=== PATIENT | female | born 1975 | race Hispanic/Latino ===

== ENCOUNTER 2023-01-04 11:19 | Emergency (ER) | payer SELFPAY ==
[2023-01-04 12:13] LABS: Absolute Lymphocytes (CBC) 3.2 K/uL (0.7-4.9); Hematocrit 44.3 % (36.0-45.0); Lymphocytes % 31.2 % (15.3-44.8); MCV 83.9 fL (80-100); MPV 7.6 fL (7.6-11.3); RBC Red Blood Cell Count 5.27 M/uL (3.86-4.86)
[2023-01-04] MEDS ORDERED: MORPHINE 2 MG/ML SYR ONE (12:15)
[2023-01-04] MEDS ORDERED: ONDANSETRON 4 MG/2 ML VIAL ONE (12:15)
[2023-01-04 12:32] LABS: Potassium 3.4 mEq/L (3.5-5.1)
--- NOTE | 2023-01-04 12:40 | RAD REPORT ---
EXAM DESCRIPTION: RAD - Chest Single View - 01/04/2023 12:33 pm CLINICAL HISTORY: CHEST PAIN COMPARISON: <Comparisons> FINDINGS: Lines: None. Lungs: No evidence of edema or pneumonia. Pleural: No significant pleural effusions or pneumothorax. Cardiac: Enlarged cardiopericardial silhouette which may be related to portable technique. Mediastinum: Within normal limits. Bones: No acute fractures. Plate and screw fixation of the right clavicle. Other: None IMPRESSION: No acute cardiopulmonary disease.
--- NOTE | 2023-01-04 12:46 | RAD REPORT ---
EXAM DESCRIPTION: CT - Head Brain Wo Cont - 01/04/2023 12:24 pm CLINICAL HISTORY: HEADACHE COMPARISON: No comparisons TECHNIQUE: All CT scans are performed using dose optimization technique as appropriate and may inclu de automated exposure control or mA/KV adjustment according to patient size. FINDINGS: No intracranial hemorrhage, hydrocephalus or extra-axial fluid collection.No areas of brai n edema or evidence of midline shift. Volume loss and encephalomalacia of the left temporal lobe. The paranasal sinuses and mastoids are clear. The calvarium is intact. IMPRESSION: No acute intracranial abnormality. Volume loss and encephalomalacia the left temporal l obe which may be related to remote trauma or other insult.
[2023-01-04] MEDS ORDERED: METOCLOPRAMIDE 10 MG/2mL INJ ONE (13:50)
[2023-01-04] MEDS ORDERED: DIPHENHYDRAMINE 50 MG/ML VIAL ONE (13:50)
[2023-01-04] MEDS ORDERED: NA CHLORIDE 0.9% 500 ML ONE (13:51)
[2023-01-04] MEDS ORDERED: KETOROLAC 30 MG/ML INJ ONE (13:51)
--- NOTE | 2023-01-04 16:21 | ER ---
Nurse's Notes [facility] Name: Sabrina Candelaria Age: 47 yrs Sex: Female : 1975 Arrival Date: 01/04/2023 Time: 11:19 Bed 13 Private MD: Diagnosis: Chest pain, unspecified;Headache Presentation: 01/04 11:39 Chief complaint: Patient states: Headache, chest, neck pain X 1 week. HTN - does not ld1 take daily medication. Coronavirus screen: At this time, the client does not indicate any symptoms associated with coronavirus-19. Ebola Screen: No symptoms or risks identified at this time. Initial Sepsis Screen: Does the patient meet any 2 criteria? No. Patient's initial sepsis screen is negative. Does the patient have a suspected source of infection? No. Patient's initial sepsis screen is negative. Risk Assessment: Do you want to hurt yourself or someone else? Patient reports no desire to harm self or others. Onset of symptoms was January 04, 2023. 11:39 Method Of Arrival: Ambulatory ld1 11:39 Acuity: ELIZABETH 3 ld1 Triage Assessment: 11:40 General: Appears in no apparent distress. comfortable, Behavior is calm, cooperative, ld1 appropriate for age. Pain: Complains of pain in face, back and neck Pain does not radiate. Pain currently is 10 out of 10 on a pain scale. Quality of pain is described as throbbing, Pain began suddenly, 1 week. EENT: No signs and/or symptoms were reported regarding the EENT system. Neuro: Level of Consciousness is awake, alert, obeys commands, Oriented to person, place, time, situation. Cardiovascular: Capillary refill < 3 seconds Patient's skin is warm and dry. Respiratory: Airway is patent Respiratory effort is even, unlabored. GI: Abdomen is round non-distended. : No signs and/or symptoms were reported regarding the genitourinary system. Derm: No signs and/or symptoms reported regarding the dermatologic system. Musculoskeletal: No signs and/or symptoms reported regarding the musculoskeletal system. 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 - Social history:: Smoking status: Patient reports the use of cigarette tobacco products, smokes one-half pack cigarettes per day, Patient/guardian denies using alcohol. Screenin:00 [facility] ED Fall Risk Assessment (Adult) History of falling in the last 3 months, nj1 including since admission No falls in past 3 months (0 pts) Confusion or Disorientation No (0 pts) Intoxicated or Sedated No (0 pts) Impaired Gait No (0 pts) Mobility Assist Device Used No (0 pt) Altered Elimination No (0 pt) Score/Fall Risk Level 0 - 2 = Low Risk Oriented to surroundings, Maintained a safe environment, Hourly rounding (assess needs \T\ fall precautionary measures) done. Abuse screen: Denies threats or abuse. Denies injuries from another. 12:00 Nutritional screening: No deficits noted. Tuberculosis screening: No symptoms or risk nj1 factors identified. Assessment: 12:00 General: Appears in no apparent distress. uncomfortable, Behavior is calm, cooperative, nj1 appropriate for age. Pain: Complains of pain in chest and head Pain currently is 10 out of 10 on a pain scale. Neuro: Level of Consciousness is awake, alert, obeys commands, Oriented to person, place, time, situation. Cardiovascular: Patient's skin is warm and dry. Cardiovascular: Chest pain. Respiratory: Airway is patent Respiratory effort is even, unlabored. 13:00 Reassessment: Patient appears in no apparent distress at this time. Patient and/or nj1 family updated on plan of care and expected duration. Pain level reassessed. Patient is alert, oriented x 3, equal unlabored respirations, skin warm/dry/pink. 13:50 Reassessment: Patient appears in no apparent distress at this time. Patient and/or nj1 family updated on plan of care and expected duration. Pain level reassessed. Patient is alert, oriented x 3, equal unlabored respirations, skin warm/dry/pink. 15:07 Reassessment: Patient appears in no apparent distress at this time. Patient and/or nj1 family updated on plan of care and expected duration. Pain level reassessed. Patient is alert, oriented x 3, equal unlabored respirations, skin warm/dry/pink. Patient denies pain at this time. Patient states feeling better. Patient states symptoms have improved. 16:00 Reassessment: Patient appears in no apparent distress at this time. Patient and/or nj1 family updated on plan of care and expected duration. Pain level reassessed. Patient is alert, oriented x 3, equal unlabored respirations, skin warm/dry/pink. Patient denies pain at this time. Patient states feeling better. Patient states symptoms have improved. Vital Signs: 11:39 BP 154 / 99; Pulse 63; Resp 18; Temp 97.4(O); Pulse Ox 98% on R/A; Weight 85.73 kg; ld1 Height 5 ft. 6 in. ; Pain 10/10; 12:00 BP 178 / 102; Pulse 68; Resp 18; Pulse Ox 99% ; Pain 10/10; nj1 13:00 BP 170 / 108; Pulse 67; Resp 14; Pulse Ox 98% on R/A; Pain 7/10; nj1 13:54 BP 166 / 93; Pulse 64; Resp 16; Pulse Ox 100% on R/A; Pain 7/10; nj1 15:07 BP 158 / 97; Pulse 64; Resp 17; Pulse Ox 95% on R/A; Pain 0/10; nj1 16:00 BP 136 / 75; Pulse 64; Resp 18; Pulse Ox 96% ; Pain 0/10; nj1 11:39 Body Mass Index 30.51 (85.73 kg, 167.64 cm) ld1 11:39 Pain Scale: Adult ld1 12:00 Pain Scale: Adult nj1 13:00 Pain Scale: Adult nj1 13:54 Pain Scale: Adult nj1 15:07 Pain Scale: Adult nj1 16:00 Pain Scale: Adult nj1 ED Course: 11:21 Patient arrived in ED. rg4 11:31 Zaheer Briggs PA is PHCP. jmm 11:31 Omar Ferguson MD is Attending Physician. jmm 11:40 Triage completed. ld1 11:40 Arm band placed on right wrist. EKG completed in triage. Results shown to MD. ld1 11:55 Dai Costa, SHEYLA is Primary Nurse. nj1 12:00 Patient has correct armband on for positive identification. Bed in low position. Call nj1 light in reach. Side rails up X 1. Adult w/ patient. 12:00 Client placed on continuous cardiac and pulse oximetry monitoring. NIBP monitoring nj1 applied. 12:00 Patient maintains SpO2 saturation greater than 95% on room air. nj1 12:05 Inserted saline lock: 20 gauge in right antecubital area, using aseptic technique. nj1 Blood collected. 12:25 CT Head Brain wo Cont In Process Unspecified. EDMS 12:34 XRAY Chest (1 view) In Process Unspecified. EDMS 16:20 Ulices Disla MD is Referral Physician. [place]on[place] 16:45 No provider procedures requiring assistance completed. IV discontinued, intact, nj1 bleeding controlled. Administered Medications: 12:10 Drug: morphine IVP or IV 2 mg Route: IVP; Infused Over: 4 mins; Site: right antecubital;nj1 13:10 Follow up: Response: No adverse reaction; Pain is decreased nj1 12:10 Drug: Ondansetron IVP 4 mg Route: IVP; Site: right antecubital; nj1 13:10 Follow up: Response: No adverse reaction nj1 13:50 Drug: metoCLOPramide IVP 20 mg Route: IVP; Site: right antecubital; nj1 14:50 Follow up: Response: No adverse reaction; Marked relief of symptoms nj1 13:50 Drug: diphenhydrAMINE IVP 12.5 mg Route: IVP; Site: right antecubital; nj1 14:50 Follow up: Response: No adverse reaction; Marked relief of symptoms nj1 13:50 Drug: Ketorolac IVP 30 mg Route: IVP; Site: right antecubital; nj1 14:50 Follow up: Response: No adverse reaction; Marked relief of symptoms nj1 Medication: 16:45 VIS not applicable for this client. nj1 Outcome: 16:20 Discharge ordered by . quyen 16:45 Discharged to home ambulatory, with family. nj1 16:45 Condition: stable 16:45 Discharge instructions given to patient, family, Instructed on discharge instructions, follow up and referral plans. medication usage, Demonstrated understanding of instructions, follow-up care, medications, Prescriptions given X 1. 16:50 Patient left the ED. nj1 Signatures: Dispatcher [employer] EDMS Zaheer Briggs PA PA jmm Garcia, Rubi rg4 Chata Wetzel, RN RN ld1 Dai Costa RN RN nj1 Corrections: (The following items were deleted from the chart) 17:25 17:24 Patient left the ED. nj1 nj1
--- NOTE | 2023-01-04 16:21 | EDPHYS ---
Physician Documentation [facility] Name: Sabrina Candelaria Age: 47 yrs Sex: Female : 1975 Arrival Date: 01/04/2023 Time: 11:19 Bed 13 Private MD: ED Physician Omar Ferguson HPI: 01/04 11:42 This 47 yrs old Female presents to ER via Ambulatory with complaints of Chest jmm Pressure, Back Pain, Headache, High Blood Pressure, Nausea. 11:42 The patient or guardian reports chest pain that is located primarily in the substernal jmm area. Onset: gradually, 1 week(s) ago. The pain does not radiate. Associated signs and symptoms: Pertinent positives: headache. The chest pain is described as aching. Is a 47-year-old female with history of hypertension presents the ED with complaints of headache and chest pain beginning approximately a week ago. Pain increased today. Denies history of coronary artery disease but states that she does smoke regularly.. 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 - Social history:: Smoking status: Patient reports the use of cigarette tobacco products, smokes one-half pack cigarettes per day, Patient/guardian denies using alcohol. ROS: 11:42 Constitutional: Negative for fever, chills, and weight loss. jmm 11:42 Cardiovascular: Positive for chest pain. 11:42 Neuro: Positive for headache. 11:42 All other systems are negative. Exam: 11:42 Head/Face: atraumatic. Eyes: EOMI, no conjunctival erythema appreciated ENT: Moist jmm Mucus Membranes Neck: Trachea midline, Supple Chest/axilla: Normal chest wall appearance and motion. Cardiovascular: Regular rate and rhythm. No edema appreciated Respiratory: Normal respirations, no respiratory distress appreciated Abdomen/GI: Non distended Back: Normal ROM Skin: General appearance color normal MS/ Extremity: Moves all extremities, no obvious deformities appreciated, no edema noted to the lower extremities Neuro: Awake and alert Psych: Behavior is normal, Mood is normal, Patient is cooperative and pleasant 11:42 Constitutional: The patient appears alert, awake, uncomfortable. Vital Signs: 11:39 BP 154 / 99; Pulse 63; Resp 18; Temp 97.4(O); Pulse Ox 98% on R/A; Weight 85.73 kg; ld1 Height 5 ft. 6 in. ; Pain 10/10; 12:00 BP 178 / 102; Pulse 68; Resp 18; Pulse Ox 99% ; Pain 10/10; nj1 13:00 BP 170 / 108; Pulse 67; Resp 14; Pulse Ox 98% on R/A; Pain 7/10; nj1 13:54 BP 166 / 93; Pulse 64; Resp 16; Pulse Ox 100% on R/A; Pain 7/10; nj1 15:07 BP 158 / 97; Pulse 64; Resp 17; Pulse Ox 95% on R/A; Pain 0/10; nj1 16:00 BP 136 / 75; Pulse 64; Resp 18; Pulse Ox 96% ; Pain 0/10; nj1 11:39 Body Mass Index 30.51 (85.73 kg, 167.64 cm) ld1 11:39 Pain Scale: Adult ld1 12:00 Pain Scale: Adult nj1 13:00 Pain Scale: Adult nj1 13:54 Pain Scale: Adult nj1 15:07 Pain Scale: Adult nj1 16:00 Pain Scale: Adult nj1 MDM: 11:43 Patient medically screened. [facility] 17:11 Differential diagnosis: acute myocardial infarction, acute pericarditis, anxiety, [facility] pulmonary embolus, thoracic aortic disection, Subarachnoid hemorrhage, meningitis, migraine. Data reviewed: vital signs, nurses notes, lab test result(s), EKG, radiologic studies, CT scan, plain films. 17:11 Consideration of Admission/Observation Escalation of care including [facility] admission/observation considered. I considered the following discharge prescriptions or medication management in the emergency department Medications were administered in the Emergency Department. See MAR. Independent interpretation of the following test(s) in the Emergency Department X-Ray: My interpretation is Chest x-ray clear. Counseling: I had a detailed discussion with the patient and/or guardian regarding: the historical points, exam findings, and any diagnostic results supporting the discharge/admit diagnosis, lab results, radiology results, the need for outpatient follow up, to return to the emergency department if symptoms worsen or persist or if there are any questions or concerns that arise at home. 01/04 11:42 Order name: Basic Metabolic Panel; Complete Time: 12:37 [facility] 01/04 11:42 Order name: CBC with Diff; Complete Time: 12:18 [facility] 01/04 11:42 Order name: Troponin HS; Complete Time: 12:37 [facility] 01/04 15:17 Order name: Troponin High Sensitivity; Complete Time: 15:[address] [facility] 01/04 11:42 Order name: XRAY Chest (1 view); Complete Time: 12:55 [facility] 01/04 11:46 Order name: CT Head Brain wo Cont; Complete Time: 12:[address] [facility] 01/04 11:42 Order name: EKG; Complete Time: 11:44 [facility] 01/04 11:42 Order name: Cardiac monitoring; Complete Time: 11:58 [facility] 01/04 11:42 Order name: EKG - Nurse/Tech; Complete Time: 11:43 01/04 11:42 Order name: IV Saline Lock; Complete Time: 11:45 01/04 11:42 Order name: Labs collected and sent; Complete Time: 11:45 [facility] 01/04 11:42 Order name: O2 Per Protocol; Complete Time: 11:46 [facility] 01/04 11:42 Order name: O2 Sat Monitoring; Complete Time: 11:47 ld1 Administered Medications: 12:10 Drug: morphine IVP or IV 2 mg Route: IVP; Infused Over: 4 mins; Site: right antecubital;nj1 13:10 Follow up: Response: No adverse reaction; Pain is decreased nj1 12:10 Drug: Ondansetron IVP 4 mg Route: IVP; Site: right antecubital; nj1 13:10 Follow up: Response: No adverse reaction nj1 13:50 Drug: metoCLOPramide IVP 20 mg Route: IVP; Site: right antecubital; nj1 14:50 Follow up: Response: No adverse reaction; Marked relief of symptoms nj1 13:50 Drug: diphenhydrAMINE IVP 12.5 mg Route: IVP; Site: right antecubital; nj1 14:50 Follow up: Response: No adverse reaction; Marked relief of symptoms nj1 13:50 Drug: Ketorolac IVP 30 mg Route: IVP; Site: right antecubital; nj1 14:50 Follow up: Response: No adverse reaction; Marked relief of symptoms nj1 Disposition: 01/05 09:01 Co-signature as Attending Physician, Omar Ferguson MD I reviewed the patient's care rt provided by the Advanced Practice Provider and agree with the diagnosis and treatment plan. Disposition Summary: 01/04/23 16:20 Discharge Ordered Location: Home jmm Condition: Stable jmm Diagnosis - Chest pain, unspecified jmm - Headache jmm Followup: jmm - With: Ulices Disla MD - When: 2 - 3 days - Reason: Recheck today's complaints, Continuance of care, Re-evaluation by your physician Discharge Instructions: - Discharge Summary Sheet jmm - Nonspecific Chest Pain, Adult jmm - Migraine Headache jmm Forms: - Medication Reconciliation Form jmm - Thank You Letter jmm - Antibiotic Education jmm - Prescription Opioid Use jmm - Work release form nj1 Prescriptions: - Diclofenac Sodium 75 mg Oral Tablet Sustained Release - take 1 tablet by ORAL route 2 times per day; 30 tablet; Refills: 0, Product jmm Selection Permitted Signatures: Dispatcher [employer] EDMS Zaeher Briggs PA PA jmm Sims, Lauren, RN RN ld1 Omar Ferguson MD MD rt Dai Costa RN RN nj1
[2023-01-04 17:52] VITALS: TEMP 97.4
[2023-01-04 17:58] VITALS: BP 136/75; O2SAT 96
--- NOTE | 2023-01-08 11:47 | EKG ---
Test Date: 2023-01-04 Test Time: 11:40:58 Pmo Analyst: VIDHYA MEASUREMENT RESULTS: Intervals: Rate: 68 SD: 156 QRSD: 88 QT: 400 QTc: 425 [place]: P: 39 SD: 156 QRS: 45 T: 7 INTERPRETIVE STATEMENTS: Normal sinus rhythm T wave abnormality, consider anterior ischemia Abnormal ECG No previous ECG available for comparison Electronically Signed On 01-08-23 11:42:02 CDT by Foreign Dubon
== END 2023-01-04 17:24 | disposition home or self-care (01) ==
LOC: ER 11:19
DX: R07.89 Other chest pain (principal); R51.9 Headache, unspecified
CPT/HCPCS: 36415; 70450; 71045; 80048; 84484; 85025; 93005; 96374; 96375; 99285; J1200; J2270; J2405; J2765; J7040

== ENCOUNTER 2024-10-11 14:30 | Emergency (ER) | payer SELFPAY ==
[2024-10-11] MEDS ORDERED: LIDOCAINE 2% W/EPI 1:200,000 MPF 20 ML VIAL IM ONE (14:44)
--- NOTE | 2024-10-11 15:00 | RAD REPORT ---
EXAMINATION: XR RIGHT FOREARM CLINICAL INDICATION: . chainsaw to R mid forearm, eval for retained FB TECHNIQUE:Two view radiograph of the right forearm were obtained. COMPARISON: No prior exam. FINDINGS: No bone or joint abnormality detected. Soft tissue laceration ulnar aspect of the forearm. No radiopaque foreign body.
[2024-10-11] MEDS ORDERED: CEPHALEXIN 250 MG CAP ONE (15:21)
--- NOTE | 2024-10-11 15:22 | EDPHYS ---
Physician Documentation [facility] Name: Sabrina Candelaria Age: 49 yrs Sex: Female : 1975 Arrival Date: 10/11/2024 Time: 14:30 Bed 14 Private MD: ED Physician Mike Estrada HPI: 10/11 14:54 This 49 yrs old Female presents to ER via Ambulatory with complaints of ec2 Laceration To Arm. 14:54 Patient arrives today for a laceration to the forearm. Up-to-date on tetanus status, ec2 most recently 4 years ago. Sustained a laceration to the right forearm. Has no other concerns, bleeding controlled.. 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 - Infectious Disease History:: Denies. Denies. - Social history:: Smoking status: Patient reports the use of cigarette tobacco products. ROS: 14:54 Constitutional: as per hpi ec2 Exam: 14:54 Constitutional: GEN: NAD Head: atraumatic Eyes: EOMI Ears: External ears are ec2 normal. CV: regular rate LUNGS: no respiratory distress ABD: non-distended SKIN: Laceration noted to the lateral aspect of the mid right forearm, no bone exposure, no muscular exposure MSK: Strength intact in the right hand, intact distal neurovascular status Vital Signs: 14:32 BP 175 / 115; Pulse 84; Resp 19 S; Temp 97.3(TE); Pulse Ox 100% on R/A; Weight 75.75 kg aa5 (R); Height 5 ft. 6 in. (R); Pain 10/10; 15:28 BP 136 / 90; Pulse 78; Resp 16; Temp 98.4; Pulse Ox 99% ; me1 14:32 Body Mass Index 26.95 (75.75 kg, 167.64 cm) aa5 14:32 Pain Scale: Adult aa5 Laceration: 15:24 Wound Repair of 5cm ( 2.0in ) subcutaneous laceration to right arm. Distal ec2 neuro/vascular/tendon intact. Anesthesia: Wound infiltrated with 10 mls of 2% lidocaine. Wound prep: Wound irrigation by nurse. Skin closed with 6 3-0 Silk using simple sutures and sterile technique. Dressed with non-adherent dressing. Patient tolerated well. MDM: 14:36 Medical Screening Exam initiated ec2 14:54 Data reviewed: vital signs, nurses notes. ED course: Patient arrives today for a ec2 laceration to the lateral aspect of the right forearm. Examination yields skin findings as above. Patient with intact musculature, no evidence of tendon or muscle rupture, no underlying bone exposure. Suspect soft tissue laceration. I obtained a forearm x-ray which shows no retained foreign body. Soft tissue defect is noted. Will anesthetize and repair the laceration. 15:24 ED course: I repaired the laceration without issue. [address] Will discharge ec2 home. Return precautions given. Will empirically start on Keflex given the contaminated surface she was cut on.. 10/11 14:42 Order name: Forearm Right XRAY; Complete Time: 15:22 ec2 10/11 14:42 Order name: Wound Care; Complete Time: 14:54 ec2 Administered Medications: 15:07 Drug: Lidocaine-Epinephrine Infiltration -2 % (1:100,000) 10 ml Infiltration once; to mo1 bedside {Note: Administered by Dr Estrada.} Route: Infiltration; 15:38 Follow up: Response: No adverse reaction; Pain is decreased mo1 15:22 CANCELLED (Physician Discretion): amoxicillin-[id number] mg PO once ec2 15:27 Drug: Cephalexin PO 500 mg PO once Route: PO; mo1 15:38 Follow up: Response: No adverse reaction me1 Disposition Summary: 10/11/24 15:22 Discharge Ordered Notes: Location: Home ec2 Condition: Stable ec2 Diagnosis - Arm Laceration Right/Open wound forearm ec2 Followup: ec2 - With: Emergency Department - When: 7 - 10 days - Reason: Recheck today's complaints Discharge Instructions: - Discharge Summary Sheet ec2 - Laceration Care, Adult, [id number] ec2 Forms: - Medication Reconciliation Form ec2 - Antibiotic Education ec2 - Prescription Opioid Use ec2 - Patient Portal Instructions ec2 - Leadership Thank You Letter ec2 Prescriptions: - Cephalexin 500 mg Oral capsule - take 1 capsule ORAL route every 12 hours for 5 days; 10 capsule; Refills: 0, ec2 Product Selection Permitted Signatures: Dispatcher [employer] Kenyatta Sarmiento RN RN aa5 Zara Claudio RN RN me1 Mike Estrada MD MD ec2 Corrections: (The following items were deleted from the chart) 15:22 15:22 Amoxicillin-Clavulanate PO 875 mg PO once ordered. ec2 ec2
--- NOTE | 2024-10-11 15:22 | ER ---
Nurse's Notes [facility] Name: Sabrina Candelaria Age: 49 yrs Sex: Female : 1975 Arrival Date: 10/11/2024 Time: 14:30 Bed 14 Private MD: Diagnosis: Arm Laceration Right/Open wound forearm Presentation: 10/11 14:32 Chief complaint: Patient states: "my was cutting trees with a chain saw and the aa5 chain came loose and ended up cutting my right arm". Laceration noted to right FA, bleeding controlled, gauze applied. 14:32 Coronavirus screen: At this time, the client does not indicate any symptoms associated aa5 with coronavirus-19. Ebola Screen: Patient denies travel to an Ebola-affected area in the 21 days before illness onset. Complicating Factors: There are no complicating factors for this patient. Initial Sepsis Screen: Does the patient meet any 2 criteria? No. Patient's initial sepsis screen is negative. Does the patient have a suspected source of infection? No. Patient's initial sepsis screen is negative. Risk Assessment: Do you want to hurt yourself or someone else? Patient reports no desire to harm self or others. Onset of symptoms was October 11, 2024. 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 - Infectious Disease History:: Denies. Denies. - Social history:: Smoking status: Patient reports the use of cigarette tobacco products. Screenin:37 [facility] [place] ED Fall Risk Assessment (Adult) History of falling in the last 3 months, me1 including since admission No falls in past 3 months (0 pts) Confusion or Disorientation No (0 pts) Intoxicated or Sedated No (0 pts) Impaired Gait No (0 pts) Mobility Assist Device Used No (0 pt) Altered Elimination No (0 pt) Score/Fall Risk Level 0 - 2 = Low Risk Maintained a safe environment, Provided non-skid footwear, Hourly rounding (assess needs \\T\\ fall precautionary measures) done. Abuse screen: Denies threats or abuse. Nutritional screening: No deficits noted. Tuberculosis screening: No symptoms or risk factors identified. Assessment: 14:34 General: Appears uncomfortable, well groomed, well developed, well nourished, Behavior me1 is calm, cooperative, appropriate for age, Reports laceration to right forearm caused by a chain that came off the chainsaw and hit her in the right forearm. Pain: Complains of pain in palmar aspect of right forearm Pain does not radiate. Pain currently is 10 out of 10 on a pain scale. Quality of pain is described as throbbing, Pain began suddenly, Is continuous. Neuro: Level of Consciousness is awake, alert, obeys commands, Oriented to person, place, time, situation, Appropriate for age. Cardiovascular: Patient's skin is warm and dry. Respiratory: Airway is patent Respiratory effort is even, unlabored, Respiratory pattern is regular, symmetrical. GI: No signs and/or symptoms were reported involving the gastrointestinal system. : No signs and/or symptoms were reported regarding the genitourinary system. EENT: No signs and/or symptoms were reported regarding the EENT system. Derm: Skin is intact, is healthy with good turgor, Skin is pink, warm \\T\\ dry. Musculoskeletal: Reports pain in palmar aspect of right forearm. Injury Description: Laceration sustained to palmar aspect of right forearm is not bleeding. Vital Signs: 14:32 BP 175 / 115; Pulse 84; Resp 19 S; Temp 97.3(TE); Pulse Ox 100% on R/A; Weight 75.75 kg aa5 (R); Height 5 ft. 6 in. (R); Pain 10/10; 15:28 BP 136 / 90; Pulse 78; Resp 16; Temp 98.4; Pulse Ox 99% ; me1 14:32 Body Mass Index 26.95 (75.75 kg, 167.64 cm) aa5 14:32 Pain Scale: Adult aa5 ED Course: 14:32 Patient arrived in ED. ec2 14:32 Mike Estrada MD is Attending Physician. ec2 14:32 Zara Claudio, RN is Primary Nurse. me1 14:32 Arm band placed on Patient placed in an exam room, on a stretcher. aa5 14:37 Patient has correct armband on for positive identification. Bed in low position. Call me1 light in reach. Side rails up X 1. Provided Education on: POC. Verbalized understanding.. Client placed on continuous cardiac and pulse oximetry monitoring. NIBP monitoring applied. Pulse ox on. NIBP on. 14:37 No provider procedures requiring assistance completed. me1 14:39 Triage completed. aa5 14:53 Forearm Right XRAY In Process Unspecified. EDMS 15:27 Wound care: to laceration located on palmar aspect of right forearm was cleaned with dc1 Hibiclens, dressed with nonadhesive dressing, gauze and kerlex, Patient tolerated well. 15:38 Patient did not have IV access during this emergency room visit. me1 Administered Medications: 15:07 Drug: Lidocaine-Epinephrine Infiltration -2 % (1:100,000) 10 ml Infiltration once; to dc1 bedside {Note: Administered by Dr Estrada.} Route: Infiltration; 15:38 Follow up: Response: No adverse reaction; Pain is decreased me1 15:22 CANCELLED (Physician Discretion): amoxicillin-[id number] mg PO once ec2 15:27 Drug: Cephalexin PO 500 mg PO once Route: PO; me1 15:38 Follow up: Response: No adverse reaction me1 Medication: 15:38 VIS not applicable for this client. me1 Outcome: 15:22 Discharge ordered by . ec2 15:38 Discharged to home ambulatory, with family, me1 15:38 Condition: stable 15:38 Discharge instructions given to patient, family, Instructed on discharge instructions, follow up and referral plans. medication usage, wound care, Demonstrated understanding of instructions, follow-up care, medications, wound care, Prescriptions given X 1, 15:38 Patient left the ED. me1 Signatures: Dispatcher [employer] Kenyatta Sarmiento, RN RN aa5 Zara Claudio, RN RN me1 Mike Estrada MD MD ec2
[2024-10-11 15:56] VITALS: BP 136/90; TEMP 98.4; O2SAT 99
== END 2024-10-11 15:38 | disposition home or self-care (01) ==
LOC: ER 14:30
DX: S51.811A Laceration without foreign body of right forearm, initial encounter (principal)
CPT/HCPCS: 12032; 99284